=== PATIENT | male | born 1980 | race Hispanic/Latino ===

== ENCOUNTER 2020-08-11 15:34 | Emergency (ER) | payer BC, SELFPAY ==
[~2020-08-11] VITALS: Ht 185.4 cm; Wt 143.3 kg
--- NOTE | 2020-08-11 16:52 | REP ---
INDICATION: fall 4 weeks ago, persistent pain. COMPARISON: None. TECHNIQUE: Three views of the left shoulder were performed. FINDINGS: The acromioclavicular and glenohumeral relationships are within normal limits. There is no acute fracture or destructive osseous lesion. IMPRESSION: Within normal limits <Electronically signed by Fox Husain > 08/11/20 [id number]
[2020-08-11] MEDS ORDERED: KETOROLAC 60MG 2ML VIAL IM ONE (17:10)
[2020-08-11 17:12] VITALS: BP 112/90
== END 2020-08-11 17:32 | disposition home or self-care (01) ==
LOC: M ED 15:34
DX: M25.512 Pain in left shoulder (principal); V00.831A Fall from motorized mobility scooter, initial encounter; Y92.9 Unspecified place or not applicable; Y93.9 Activity, unspecified; Y99.9 Unspecified external cause status; E11.9 Type 2 diabetes mellitus without complications; I10 Essential (primary) hypertension; Z86.73 Personal history of transient ischemic attack (TIA), and cerebral infarction without residual deficits; F17.200 Nicotine dependence, unspecified, uncomplicated
CPT/HCPCS: 73030; 96372; 99283; J1885

== ENCOUNTER 2020-10-07 11:14 | Emergency (ER) | payer SELFPAY ==
[~2020-10-07] VITALS: Ht 182.9 cm; Wt 138.8 kg
--- NOTE | 2020-10-07 11:49 | REP ---
INDICATION: pain. COMPARISON: 08/11/2020 TECHNIQUE: Three views of the left shoulder were performed. FINDINGS: The acromioclavicular and glenohumeral relationships are within normal limits. There is no acute fracture or destructive osseous lesion. IMPRESSION: No acute abnormality or significant change compared to the prior exam. Since the patient is complaining of chronic pain consideration should be made for follow-up with MRI. <Electronically signed by Fox Husain > 10/07/20 [id number]
[2020-10-07] MEDS ORDERED: IBUP80TA PO (13:15)
[2020-10-07 13:36] VITALS: BP 125/69
[2020-10-07] MEDS ORDERED: IBUPROFEN 800 MG TAB PO ONE (13:40)
== END 2020-10-07 14:04 | disposition home or self-care (01) ==
LOC: M ED 11:14
DX: M25.512 Pain in left shoulder (principal); E11.9 Type 2 diabetes mellitus without complications; I10 Essential (primary) hypertension; F17.200 Nicotine dependence, unspecified, uncomplicated; F12.10 Cannabis abuse, uncomplicated; Z86.73 Personal history of transient ischemic attack (TIA), and cerebral infarction without residual deficits

== ENCOUNTER 2020-11-08 14:35 | Emergency (ER) | payer SELFPAY ==
[~2020-11-08] VITALS: Ht 182.9 cm; Wt 141.5 kg
[~2020-11-08 14:35] MED LIST: IBUP80TA PO
[2020-11-08 14:36] VITALS: BP 131/91
[2020-11-09] MEDS ORDERED: METH-1165 PO (06:47)
== END 2020-11-08 21:05 | disposition left against medical advice (07) ==
LOC: M ED 14:35
DX: Z53.29 Procedure and treatment not carried out because of patient's decision for other reasons (principal)

== ENCOUNTER 2020-11-08 23:40 | Emergency (ER) | payer MEDICAID, SELFPAY ==
[~2020-11-08] VITALS: Ht 182.9 cm; Wt 141.3 kg
[2020-11-09] MEDS ORDERED: KETOROLAC 60MG 2ML VIAL IM ONE (06:45)
[2020-11-09] MEDS ORDERED: LIDOCAINE 5% (LIDODERM) PATCH TD ONE (06:45)
[2020-11-09] MEDS ORDERED: METH-1165 PO (06:47)
[2020-11-09 07:17] VITALS: BP 118/67
[2020-11-09] MEDS ORDERED: **NOTE PATIENT COMMENT** MISC XX SCH (21:00)
== END 2020-11-09 07:18 | disposition home or self-care (01) ==
LOC: M ED 23:40
DX: M25.512 Pain in left shoulder (principal); E11.9 Type 2 diabetes mellitus without complications; I10 Essential (primary) hypertension; Z86.73 Personal history of transient ischemic attack (TIA), and cerebral infarction without residual deficits; F17.200 Nicotine dependence, unspecified, uncomplicated
CPT/HCPCS: 99283; J1885

== ENCOUNTER → 2020-11-27 | Outpatient (CLI) | payer MEDICAID ==
[~2020-11-27] MED LIST changes: +METH-1165 PO
--- NOTE | 2020-11-28 09:47 | REP ---
INDICATION: IMPINGEMENT SYNDROME`. COMPARISON: Radiographs 10/07/2020. TECHNIQUE: Coronal oblique T1, T2 fat sat, sagittal oblique T2 fat sat, axial T2 fat sat, gradient echo. FINDINGS: Rotator cuff: There is tendinopathy/tendinitis of the supraspinatus tendon with partial undersurface tearing. Acromioclavicular joint: There are moderate hypertrophic degenerative changes of the acromioclavicular joint. Acromion: Type 2 Biceps Tendon: In bicipital groove, no tenosynovitis. Hill Sach's deformity: None. Deltoid muscle: No abnormal signal. Biceps labral complex: There is tear at the base of the biceps labral complex. Labrum: There is a diffuse SLAP tear. Cartilage: No osteochondral defects. Bone marrow: There is mild subcortical marrow edema at the acromioclavicular joint. There are a few subcentimeter subcortical cysts in the superolateral humeral head. Joint fluid: No effusion. IMPRESSION: Tendinopathy/tendinitis of the supraspinatus tendon with partial undersurface tearing. Moderate hypertrophic degenerative changes acromioclavicular joint with a type 2 acromion. There is a diffuse SLAP tear which also involves the base of the biceps labral complex. <Electronically signed by Germán Whiteside > 11/28/20 [id number]
== END | disposition home or self-care (01) ==
LOC: M RAD 11-23 18:09
PROVIDERS: ATTEND Orthopaedic Surgery Sports Medicine
DX: M75.42 Impingement syndrome of left shoulder (principal); S43.432A Superior glenoid labrum lesion of left shoulder, initial encounter; X58.XXXA Exposure to other specified factors, initial encounter; Y92.9 Unspecified place or not applicable; Y93.9 Activity, unspecified; Y99.9 Unspecified external cause status

== ENCOUNTER → 2020-12-14 | Outpatient (CLI) | payer OTHER ==
[2020-12-14 18:21] LABS: HEMOGLOBIN A1c 12.6 %
[2020-12-14 18:36] LABS: ALBUMIN 3.4 GM/DL (3.2-5.2); ALT/SGPT 34 U/L (12-78); BILIRUBIN,TOTAL 0.5 MG/DL (0.2-1.0); BLOOD UREA NITROGEN 12 MG/DL (7-18); CALCIUM LEVEL 9.2 MG/DL (8.5-10.1); CARBON DIOXIDE LEVEL 31 MEQ/L (21-32); CHLORIDE LEVEL 99 MEQ/L (98-107); CHOLESTEROL LEVEL 255 MG/DL (<200); CHOLESTEROL RISK RATIO 5.425 (<5); CREATININE FOR GFR 0.69 MG/DL (0.70-1.30); GLOMERULAR FILTRATION RATE > 60.0 (>60); GLUCOSE, FASTING 306 MG/DL (70-100); HDL CHOLESTEROL 47 MG/DL (>40); LDL CHOLESTEROL 143 MG/DL (<100); NON-HDL-C 208 MG/DL; POTASSIUM SERUM 4.2 MEQ/L (3.5-5.1); SODIUM LEVEL 136 MEQ/L (136-145); TOTAL PROTEIN 7.3 GM/DL (6.4-8.2); TRIGLYCERIDES LEVEL 326 MG/DL (<150)
== END ==
LOC: M LAB 16:31
PROVIDERS: ATTEND Student in an Organized Health Care Education/Training Program
DX: E11.9 Type 2 diabetes mellitus without complications (principal)

== ENCOUNTER → 2021-01-18 | Outpatient (REF) ==
--- NOTE | 2021-01-18 16:53 | REP ---
INDICATION: PAIN. COMPARISON: None TECHNIQUE: Three views FINDINGS: There is mild to moderate disc space narrowing and particularly posteriorly at every level. There is anterior lipping at every level. There is marginal osteophyte formation seen bilaterally at every level particularly on the right at L1-2. Vertebral body height and alignment is within normal limits. The pedicles are intact bilaterally. Degenerative changes are seen involving the facet joints L3-4 to L5-S1 bilaterally. IMPRESSION: Chronic changes as described above. <Electronically signed by Fox Husain > 01/18/21 [id number]
--- NOTE | 2021-01-18 16:54 | REP ---
INDICATION: PAIN COMPARISON: None TECHNIQUE: Five views FINDINGS: There is tricompartmental marginal osteophytosis with medial compartmental narrowing and asymmetric patellofemoral joint space narrowing. There is no fracture, dislocation, or subluxation. IMPRESSION: Chronic changes as described above. <Electronically signed by Fox Husain > 01/18/21 [id number]
== END ==
LOC: M PLAIMG 15:17
PROVIDERS: ATTEND Internal Medicine
DX: M25.561 Pain in right knee (principal); M54.50 Low back pain, unspecified

== ENCOUNTER 2021-01-27 12:00 | Outpatient (RCR) | payer OTHER | END 2021-01-29 | LOC: M PT 12:00 | PROVIDERS: ATTEND Orthopaedic Surgery Sports Medicine | DX: M75.42 Impingement syndrome of left shoulder (principal) ==

== ENCOUNTER 2021-02-27 15:45 | Outpatient (RCR) | payer OTHER ==
[2021-04-26] MEDS ORDERED: PRAV40TA2 PO (14:25)
[2021-04-26] MEDS ORDERED: METF-877 PO (14:25)
[2021-04-26] MEDS ORDERED: LISI10TA22 PO (14:25)
== END 2021-02-28 ==
LOC: M PT 15:45
PROVIDERS: ATTEND Orthopaedic Surgery Sports Medicine
DX: M75.42 Impingement syndrome of left shoulder (principal)

== ENCOUNTER → 2021-04-18 | Outpatient (CLI) | payer OTHER, MEDICAID ==
[2021-04-18 13:25] LABS: BASO % 0.4 % (0.0-1.0); EOS # 0.2 10^3/uL (0.0-0.5); EOS % 5.1 % (0.0-3.0); HEMATOCRIT 44.7 % (42.0-52.0); HEMOGLOBIN 15.5 g/dl (13.5-17.5); LYMPH % 42.7 % (24.0-44.0); MEAN CORPUSCULAR HEMOGLOBIN 28.3 pg (27.0-33.0); MEAN CORPUSCULAR HGB CONC 34.7 g/dl (32.0-36.5); MEAN CORPUSCULAR VOLUME 81.7 fl (80.0-96.0); MONO # 0.4 10^3/uL (0.0-0.8); MONO % 8.5 % (2.0-8.0); NEUTROPHILS % 42.5 % (36.0-66.0); PLATELET COUNT, AUTOMATED 230 10^3/uL (150-450); RED BLOOD COUNT 5.47 10^6/uL (4.30-6.10); WHITE BLOOD COUNT 4.7 10^3/uL (4.0-10.0)
[2021-04-18 13:38] LABS: INR 0.88; PARTIAL THROMBOPLASTIN TIME 27.3 SECONDS (25.9-37.0); PROTHROMBIN TIME 12.3 SECONDS (12.7-14.5)
[2021-04-18 13:51] LABS: BLOOD UREA NITROGEN 16 MG/DL (7-18); CALCIUM LEVEL 8.5 MG/DL (8.5-10.1); CARBON DIOXIDE LEVEL 26 MEQ/L (21-32); CHLORIDE LEVEL 100 MEQ/L (98-107); CREATININE FOR GFR 0.62 MG/DL (0.70-1.30); GLOMERULAR FILTRATION RATE > 60.0 (>60); GLUCOSE, FASTING 387 MG/DL (70-100); POTASSIUM SERUM 3.9 MEQ/L (3.5-5.1); SODIUM LEVEL 133 MEQ/L (136-145)
== END ==
LOC: M LAB 11:28
PROVIDERS: ATTEND Physician Assistant
DX: N48.1 Balanitis (principal)

== ENCOUNTER → 2021-04-21 | Outpatient (CLI) | payer OTHER ==
[2021-04-21 13:42] LABS: HEMOGLOBIN A1c 13.4 %
[2021-04-21 13:47] LABS: MALB URINE SIEMENS 14.6 MG/L
== END ==
LOC: M LAB 11:43
PROVIDERS: ATTEND Student in an Organized Health Care Education/Training Program
DX: E11.9 Type 2 diabetes mellitus without complications (principal)

== ENCOUNTER → 2021-04-26 | Outpatient (CLI) | payer MEDICAID, OTHER ==
[~2021-04-26] MED LIST changes: +LISI10TA22 PO; +METF-877 PO; +PRAV40TA2 PO
== END ==
LOC: M LABSMTC 10:40
PROVIDERS: ATTEND Anesthesiology
DX: Z01.812 Encounter for preprocedural laboratory examination (principal); Z20.822 Contact with and (suspected) exposure to COVID-19

== ENCOUNTER 2021-05-01 06:07 | Day surgery (SDC) | payer OTHER ==
[~2021-05-01] VITALS: Ht 182.9 cm; Wt 141.1 kg
[2021-05-01] MEDS ORDERED: PERCOCET PO (09:21)
[2021-05-01 10:19] VITALS: BP 128/70
== END 2021-05-01 12:50 | disposition home or self-care (01) ==
LOC: M SDC 06:07
PROVIDERS: ATTEND Urology
DX: N47.1 Phimosis (principal); E11.9 Type 2 diabetes mellitus without complications; E78.00 Pure hypercholesterolemia, unspecified; G47.30 Sleep apnea, unspecified; I10 Essential (primary) hypertension; K21.9 Gastro-esophageal reflux disease without esophagitis; R06.83 Snoring; Z79.84 Long term (current) use of oral hypoglycemic drugs; Z79.899 Other long term (current) drug therapy; Z87.891 Personal history of nicotine dependence
CPT/HCPCS: 54161; 88304; J0131; J0690; J0744; J1885; J2175; J2250; J2405; J2765; J3010

== ENCOUNTER 2021-07-03 00:47 | Emergency (ER) | payer OTHER, MEDICAID ==
[~2021-07-03] VITALS: Ht 182.9 cm; Wt 136.8 kg
[~2021-07-03 00:47] MED LIST changes: +PERCOCET PO
[2021-07-03] MEDS ORDERED: NS 1,000 ML IV ONE ×3 (01:00→02:55)
[2021-07-03 02:02] LABS: BASO % 0.5 % (0.0-1.0); EOS # 0.2 10^3/uL (0.0-0.5); EOS % 2.3 % (0.0-3.0); HEMATOCRIT 46.2 % (42.0-52.0); HEMOGLOBIN 15.7 g/dl (13.5-17.5); LYMPH # 3.2 10^3/uL (1.5-5.0); LYMPH % 40.5 % (24.0-44.0); MEAN CORPUSCULAR VOLUME 85.4 fl (80.0-96.0); MONO # 0.7 10^3/uL (0.0-0.8); MONO % 9.4 % (2.0-8.0); NEUTROPHILS # 3.7 10^3/uL (1.5-8.5); NEUTROPHILS % 46.4 % (36.0-66.0); PLATELET COUNT, AUTOMATED 252 10^3/uL (150-450); RED BLOOD COUNT 5.41 10^6/uL (4.30-6.10); WHITE BLOOD COUNT 7.9 10^3/uL (4.0-10.0)
[2021-07-03 02:11] LABS: OSMOLALITY SERUM 318 MOSM/KG (275-295)
[2021-07-03] MEDS ORDERED: OMEP40CA5 PO (02:22)
[2021-07-03] MEDS ORDERED: med rec comment (02:23)
[2021-07-03] MEDS ORDERED: HOME MED LIST COMPLETE! XX SCH (02:25)
[2021-07-03 02:31] LABS: ACETAMINOPHEN LEVEL < 2.0 UG/ML (10.0-30.0); ALBUMIN 3.8 GM/DL (3.2-5.2); ALT/SGPT 73 U/L (12-78); BILIRUBIN,DIRECT 0.1 MG/DL (0.0-0.2); BILIRUBIN,TOTAL 0.3 MG/DL (0.2-1.0); BLOOD UREA NITROGEN 11 MG/DL (7-18); CALCIUM LEVEL 9.1 MG/DL (8.5-10.1); CARBON DIOXIDE LEVEL 28 MEQ/L (21-32); CHLORIDE LEVEL 98 MEQ/L (98-107); CREATININE FOR GFR 1.08 MG/DL (0.70-1.30); ETHYL ALCOHOL (ETHANOL) < 0.003 % (0.000-0.010); GLOMERULAR FILTRATION RATE > 60.0 (>60); GLUCOSE, FASTING 580 MG/DL (70-100); POTASSIUM SERUM 4.3 MEQ/L (3.5-5.1); SALICYLATE LEVEL 1.7 MG/DL (5.0-30.0); SODIUM LEVEL 135 MEQ/L (136-145); TOTAL PROTEIN 7.9 GM/DL (6.4-8.2)
[2021-07-03 02:38] LABS: AMPHETAMINES LEVEL URINE NEGATIVE (NEGATIVE); BARBITURATES URINE NEGATIVE (NEGATIVE); BENZODIAZEPINES URINE NEGATIVE (NEGATIVE); CANNABINOIDS URINE NEGATIVE (NEGATIVE); COCAINE METABOLITE URINE POSITIVE (NEGATIVE); METHADONE URINE NEGATIVE (NEGATIVE); OPIATES URINE NEGATIVE (NEGATIVE); PHENCYCLIDINE URINE NEGATIVE (NEGATIVE)
[2021-07-03 06:56] VITALS: BP 123/80
[2021-07-03 09:01] VITALS: BP 112/53
[2021-07-03] MEDS ORDERED: ELIQ5TAB PO (09:16)
[2021-07-03] MEDS ORDERED: CORE6.25 PO (09:16)
== END 2021-07-03 09:25 | disposition home or self-care (01) ==
LOC: M ED 00:47
DX: F14.10 Cocaine abuse, uncomplicated (principal); I48.91 Unspecified atrial fibrillation; E11.9 Type 2 diabetes mellitus without complications; I10 Essential (primary) hypertension; E78.5 Hyperlipidemia, unspecified; Z87.891 Personal history of nicotine dependence; Z79.84 Long term (current) use of oral hypoglycemic drugs; Z79.899 Other long term (current) drug therapy

== ENCOUNTER 2021-08-25 21:56 | Emergency (ER) | payer MEDICAID, OTHER ==
[~2021-08-25] VITALS: Ht 185.4 cm; Wt 136.4 kg
[~2021-08-25 21:56] MED LIST changes: +CORE6.25 PO; +ELIQ5TAB PO; +OMEP40CA5 PO; +med rec comment
[2021-08-25] MEDS ORDERED: NS 1,000 ML IV ONE (22:25)
[2021-08-25] MEDS ORDERED: INSULIN REGULAR IN 0.9 % NACL 100 UNIT in IV 1 EA IV SCH ×2 (22:25)
[2021-08-25 22:45] LABS: VENOUS BASE EXCESS 2.5 (-2.0-2.0); VENOUS HCO3 27.8 MEQ/L (23.0-27.0); VENOUS O2 SATURATION 93.6 % (60.0-80.0); VENOUS PARTIAL PRESSURE O2 67.1 mmHg (30.0-50.0); VENOUS PH 7.408 UNITS (7.330-7.430); VENOUS STANDARD HCO3 26.6 MEQ/L; VENOUS TOTAL CO2 29.1 MEQ/L (24.0-28.0)
[2021-08-25 22:47] LABS: BASO % 0.4 % (0.0-1.0); EOS # 0.2 10^3/uL (0.0-0.5); EOS % 3.4 % (0.0-3.0); HEMATOCRIT 44.6 % (42.0-52.0); HEMOGLOBIN 15.5 g/dl (13.5-17.5); LYMPH # 2.3 10^3/uL (1.5-5.0); LYMPH % 45.4 % (24.0-44.0); MEAN CORPUSCULAR HEMOGLOBIN 28.5 pg (27.0-33.0); MEAN CORPUSCULAR HGB CONC 34.8 g/dl (32.0-36.5); MEAN CORPUSCULAR VOLUME 82.1 fl (80.0-96.0); MONO # 0.4 10^3/uL (0.0-0.8); MONO % 8.1 % (2.0-8.0); NEUTROPHILS # 2.1 10^3/uL (1.5-8.5); NEUTROPHILS % 42.1 % (36.0-66.0); PLATELET COUNT, AUTOMATED 211 10^3/uL (150-450); RED BLOOD COUNT 5.43 10^6/uL (4.30-6.10); WHITE BLOOD COUNT 5.1 10^3/uL (4.0-10.0)
[2021-08-25 23:05] LABS: HEMOGLOBIN A1c 13.8 %
[2021-08-25 23:15] LABS: CK-MB VALUE MASS < 1.0 NG/ML (<3.6); CPK CREATINE PHOSPHOKINASE 73 U/L (39-308); MB/CK RELATIVE INDEX 1.37 (< OR =4)
[2021-08-25 23:19] LABS: ACETONE/KETONE 1.63 MG/DL (<2.81); ALBUMIN 3.4 GM/DL (3.2-5.2); ALT/SGPT 56 U/L (12-78); BILIRUBIN,DIRECT 0.2 MG/DL (0.0-0.2); BILIRUBIN,TOTAL 0.4 MG/DL (0.2-1.0); BLOOD UREA NITROGEN 13 MG/DL (7-18); CALCIUM LEVEL 9.2 MG/DL (8.5-10.1); CARBON DIOXIDE LEVEL 26 MEQ/L (21-32); CHLORIDE LEVEL 94 MEQ/L (98-107); CREATININE FOR GFR 0.97 MG/DL (0.70-1.30); ETHYL ALCOHOL (ETHANOL) < 0.003 % (0.000-0.010); GLOMERULAR FILTRATION RATE > 60.0 (>60); GLUCOSE, FASTING 674 MG/DL (70-100); LIPASE 155 U/L (73-393); MAGNESIUM LEVEL 1.9 MG/DL (1.8-2.4); POTASSIUM SERUM 4.5 MEQ/L (3.5-5.1); SODIUM LEVEL 130 MEQ/L (136-145); TOTAL PROTEIN 7.1 GM/DL (6.4-8.2)
[2021-08-25 23:25] LABS: OSMOLALITY SERUM 305 MOSM/KG (275-295)
[2021-08-26 02:15] VITALS: BP 110/56
== END 2021-08-26 02:28 | disposition home or self-care (01) ==
LOC: M ED 21:56
DX: E11.65 Type 2 diabetes mellitus with hyperglycemia (principal); I48.91 Unspecified atrial fibrillation; I25.10 Atherosclerotic heart disease of native coronary artery without angina pectoris; I11.9 Hypertensive heart disease without heart failure; K21.9 Gastro-esophageal reflux disease without esophagitis; Z79.84 Long term (current) use of oral hypoglycemic drugs; Z79.899 Other long term (current) drug therapy
CPT/HCPCS: 80048; 80076; 81001; 82010; 82077; 82550; 82553; 82803; 83036; 83690; 83735; 83930; 85025; 93005; 93041; 96361; 96365; 96366; 99285; J1815

== ENCOUNTER → 2021-10-03 | Outpatient (CLI) | payer MEDICAID, OTHER ==
[2021-10-03 16:00] LABS: BLOOD UREA NITROGEN 12 MG/DL (7-18); CREATININE FOR GFR 0.95 MG/DL (0.70-1.30); GLOMERULAR FILTRATION RATE > 60.0 (>60)
[2021-10-03 16:01] LABS: HEMOGLOBIN A1c 12.4 %
== END ==
LOC: M LAB 14:34
PROVIDERS: ATTEND Student in an Organized Health Care Education/Training Program
DX: E11.9 Type 2 diabetes mellitus without complications (principal)

== ENCOUNTER → 2021-10-05 | Outpatient (CLI) | payer OTHER ==
[~2021-10-05] MED LIST changes: +ISOVUE-370 76% 100ML VIAL As Ordered ONE
== END ==
LOC: M RAD 08:05
PROVIDERS: ATTEND Student in an Organized Health Care Education/Training Program
DX: R93.89 Abnormal findings on diagnostic imaging of other specified body structures (principal); K76.0 Fatty (change of) liver, not elsewhere classified
CPT/HCPCS: 71260; Q9967

== ENCOUNTER 2021-12-29 14:22 | Emergency (ER) | payer MEDICAID, OTHER ==
[~2021-12-29] VITALS: Ht 185.4 cm; Wt 134.1 kg
[~2021-12-29 14:22] MED LIST changes: -ISOVUE-370 76% 100ML VIAL As Ordered ONE
[2021-12-29] MEDS ORDERED: ACETAMINOPHEN 500 MG TAB PO ONE (17:35)
[2021-12-29] MEDS ORDERED: AUGMENTIN 875 MG TAB PO ONE (17:35)
[2021-12-29] MEDS ORDERED: CIPRODEX OTIC SUSP 7.5ML AD STA (17:35)
[2021-12-29] MEDS ORDERED: CIPR7.5D2 AD (17:48)
[2021-12-29] MEDS ORDERED: AMOX875T2 PO (17:48)
[2021-12-29] MEDS ORDERED: KETOROLAC 60MG 2ML VIAL IM ONE (18:00)
[2021-12-29 18:48] VITALS: BP 134/72
[2021-12-29] MEDS ORDERED: NEOM1SOL19 AD (19:48)
== END 2021-12-29 18:50 | disposition home or self-care (01) ==
LOC: M ED 14:22
DX: H60.91 Unspecified otitis externa, right ear (principal); H66.91 Otitis media, unspecified, right ear; E11.9 Type 2 diabetes mellitus without complications; I48.91 Unspecified atrial fibrillation; I10 Essential (primary) hypertension; Z86.73 Personal history of transient ischemic attack (TIA), and cerebral infarction without residual deficits; Z79.84 Long term (current) use of oral hypoglycemic drugs; Z79.899 Other long term (current) drug therapy
CPT/HCPCS: 99283; J1885

== ENCOUNTER 2022-10-27 20:39 | Emergency (ER) | payer MEDICAID, OTHER ==
[~2022-10-27] VITALS: Ht 182.9 cm; Wt 125.0 kg
[~2022-10-27 20:39] MED LIST changes: +AMOX875T2 PO; +CIPR7.5D2 AD; +NEOM1SOL19 AD
[2022-10-27 20:40] VITALS: BP 166/93; TEMP 96.8; O2SAT 98
== END 2022-10-28 03:41 | disposition left against medical advice (07) ==
LOC: M ED 20:39
DX: M54.50 Low back pain, unspecified (principal); Z53.9 Procedure and treatment not carried out, unspecified reason; M51.26 Other intervertebral disc displacement, lumbar region; M25.78 Osteophyte, vertebrae; M48.07 Spinal stenosis, lumbosacral region; E11.9 Type 2 diabetes mellitus without complications; I10 Essential (primary) hypertension; E78.5 Hyperlipidemia, unspecified; F32.A Depression, unspecified; F17.200 Nicotine dependence, unspecified, uncomplicated; F12.10 Cannabis abuse, uncomplicated; Z79.899 Other long term (current) drug therapy